=== PATIENT | male | born 1945 ===

== ENCOUNTER → 2016-12-19 | Outpatient (CLI) | payer MEDICARE ==
[~2016-12-19] MED LIST: ASPIRIN LO-DOSE81 MG PO; CITRACAL+D(315M1 TAB PO; COUMADIN6 MG PO; CPAP INH; FISH OIL1000 MG PO; LEVOTHROID (SY50 MCG PO; NIACIN CONTROL500 MG PO; PRAVACHOL80 MG PO; PREDNISONE20 MG PO; PRINIVIL (ZESTRI5 MG PO; TENORMIN25 MG PO; ZYLOPRIM100 MG PO
[2016-12-19 10:38] LABS: INR - (THERAPEUTIC) 1.34 (0.92-1.07); PROTIME 14.1 SECONDS (9.8-11.4)
== END | disposition disaster alternative care site (69) ==
LOC: LCNC 09:52
PROVIDERS: Internal Medicine Interventional Cardiology
DX: I48.0 Paroxysmal atrial fibrillation (principal)